=== PATIENT | male | born 1985 | race Two or more races ===

== ENCOUNTER 2016-10-29 06:37 | Emergency (ER) | payer BC ==
--- NOTE | 2016-10-29 07:37 | ER Document Report ---
HPI - HPI Patient complains to provider of: Fourth and fifth toe Onset: Yesterday Onset/Duration: Sudden Pain Level: 5 Context: 30-year-old male stubbed his fourth and fifth right toe on a door. They are swollen and bruised. Associated Symptoms: None Exacerbated by: Movement, Walking Relieved by: Denies Similar symptoms previously: No Recently seen / treated by doctor: No - ROS ROS below otherwise negative: Yes Systems Reviewed and Negative: Yes All other systems reviewed and negative - REPRODUCTIVE Reproductive: DENIES: : Past Medical History - General Information source: Patient - Social History Smoking Status: Unknown if Ever Smoked Frequency of alcohol use: None Drug Abuse: None Lives with: Family Family History: Reviewed & Not Pertinent - Past Medical History Cardiac Medical History: Reports: Hx Hypertension Endocrine Medical History: Reports: Hx Diabetes Mellitus Type 1, Hx Diabetes Mellitus Type 2 Renal/ Medical History: Denies: Hx Peritoneal Dialysis Skin Medical History: Reports Hx MRSA Past Surgical History: Reports: Hx Orthopedic Surgery - R shoulder - Immunizations Immunizations up to date: Yes Hx Diphtheria, Pertussis, Tetanus Vaccination: Yes Vertical Provider Document - CONSTITUTIONAL Agree With Documented VS: Yes Exam Limitations: No Limitations - INFECTION CONTROL TRAVEL OUTSIDE OF THE [place] IN LAST 30 DAYS: No COUNTRY TRAVELED TO/FROM: [place] - HEENT HEENT: Normocephalic - NECK Neck: Supple - RESPIRATORY O2 Sat by Pulse Oximetry: 97 - MUSCULOSKELETAL/EXTREMETIES Musculoskeletal/Extremeties: Edema, Eccymosis - Fourth and fifth toe including MTP joints 4th and 5th toes - NEURO Level of Consciousness: Awake, Alert Motor/Sensory: No Motor Deficit, No Sensory Deficit - DERM Integumentary: Warm, Dry Course - Re-evaluation Re-evalutation: 10/29/16 09:11 Distal proximal phalanx of the fourth toe and proximal proximal fifth toe phalanx - Vital Signs Vital signs: Temp Pulse Resp BP Pulse Ox 97.5 F 88 17 142/87 H 97 10/29/16 06:42 10/29/16 06:42 10/29/16 06:42 10/29/16 06:42 10/29/16 06:42 Discharge - Discharge Clinical Impression: Fourth and fifth toe fractures Condition: Good Disposition: HOME, SELF-CARE Instructions: Fractured Toe ([facility]), Nereida Taping (toes) ([facility]), Post-Op Shoe ([facility] ) Additional Instructions: see ortho for follwo up keep the toes nereida taped post op shoe to er any concerns Please complete the patient satisfaction survey if you get one, and return it.. If you do not receive a survey, then you can go to the [facility] website, [email or web address] and place your comments about your very good care. Thank you very much. It was a pleasure being your medical provider today. Prescriptions: Ibuprofen [Motrin 800 mg Tablet] 800 mg PO Q8HP PRN #30 tablet PRN Reason: Referrals: NATE LOMAS MD [ACTIVE STAFF] - Follow up as needed
[2016-10-29] MEDS ORDERED: IBUPROFEN 800 MG TABLET PO ONE (07:59)
--- NOTE | 2016-10-29 09:49 | RADIOLOGY REPORT (SQ) ---
EXAM DESCRIPTION: TOE RIGHT COMPLETED DATE/TIME: 10/29/2016 8:53 am REASON FOR STUDY: stubbed th, 5th toes COMPARISON: None. NUMBER OF VIEWS: Three views. TECHNIQUE: AP, lateral, and oblique images acquired of the right fourth toe. LIMITATIONS: None. FINDINGS: MINERALIZATION: Normal. BONES: Acute fracture right 4th toe proximal phalanx along the distal metaphysis extending into the P IP joint. This nondisplaced and nonangulated and best shown on the oblique marked with upper sioux. JOINTS: No effusions. SOFT TISSUES: No soft tissue swelling. No foreign body. OTHER: No other significant finding. IMPRESSION: Acute nondisplaced fracture right 4th toe proximal phalanx extending into the PIP joint COMMENT: SITE OF TRAUMA/COMPLAINT MARKED/STAMP COMPLETED: Yes TECHNICAL DOCUMENTATION: JOB ID: [id number] [employer]- All Rights Reserved
[2016-10-29 10:10] VITALS: BP 146/71
== END 2016-10-29 10:09 | disposition home or self-care (01) ==
LOC: ER 06:37
DX: S92.501A Displaced unspecified fracture of right lesser toe(s), initial encounter for closed fracture (principal); M79.674 Pain in right toe(s); M79.89 Other specified soft tissue disorders; W22.8XXA Striking against or struck by other objects, initial encounter
CPT/HCPCS: 99283

== ENCOUNTER 2016-12-20 08:21 | Emergency (ER) | payer BC ==
[2016-12-20 08:29] VITALS: BP 156/91
--- NOTE | 2016-12-20 09:21 | ER Document Report ---
HPI - HPI Patient complains to provider of: STD Onset: Other - 3 weeks Onset/Duration: Persistent Quality of pain: Burning Pain Level: 2 Context: Patient states that his recently cheated on him and was diagnosed with herpes. Patient complains of a painful skin lesion to the underside of his penis and is concerned about herpes. Associated Symptoms: Other - skin lesion Exacerbated by: Denies Relieved by: Denies Similar symptoms previously: No Recently seen / treated by doctor: No - ROS ROS below otherwise negative: Yes Systems Reviewed and Negative: Yes All other systems reviewed and negative - CONSTITUTIONAL Constitutional: DENIES: Fever, Chills - GASTROINTESTINAL Gastrointestinal: DENIES: Abdominal Pain - URINARY Urinary: DENIES: Dysuria, Urgency, Frequency - REPRODUCTIVE Reproductive: DENIES: : - DERM Skin Color: Normal Notes: skin lesion Past Medical History - General Information source: Patient - Social History Smoking Status: Never Smoker Frequency of alcohol use: None Drug Abuse: None 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 Lives with: Spouse/Significant other Family History: Reviewed & Not Pertinent Patient has suicidal ideation: No Patient has homicidal ideation: No - Past Medical History Cardiac Medical History: Reports: Hx Hypertension Endocrine Medical History: Reports: Hx Diabetes Mellitus Type 1, Hx Diabetes Mellitus Type 2 Renal/ Medical History: Denies: Hx Peritoneal Dialysis Skin Medical History: Reports Hx MRSA Past Surgical History: Reports: Hx Orthopedic Surgery - R shoulder - Immunizations Immunizations up to date: Yes Hx Diphtheria, Pertussis, Tetanus Vaccination: Yes Vertical Provider Document - CONSTITUTIONAL Agree With Documented VS: Yes Exam Limitations: No Limitations General Appearance: WD/WN, No Apparent Distress - INFECTION CONTROL TRAVEL OUTSIDE OF THE [place] IN LAST 30 DAYS: No - HEENT HEENT: Atraumatic, Normocephalic - NECK Neck: Normal Inspection - RESPIRATORY Respiratory: Breath Sounds Normal, No Respiratory Distress O2 Sat by Pulse Oximetry: 99 - CARDIOVASCULAR Cardiovascular: Regular Rate, Regular Rhythm, No Murmur - GI/ABDOMEN Gastrointestinal: Abdomen Soft, Abdomen Non-Tender - REPRODUCTIVE Male Genitalia: Abnormal Inspection - Skin lesion to the underside of penis concerning for condyloma acuminata. Patient with small bleeding ulceration adjacent to this skin lesion. RN to bedside as standby - MUSCULOSKELETAL/EXTREMETIES Musculoskeletal/Extremeties: CHASTITY BARRETT - NEURO Level of Consciousness: Awake, Alert, Appropriate - DERM Integumentary: Warm, Dry, Rash - skin lesion concerning for acuminata with adjacent bleeding shallow lesion Course - Re-evaluation Re-evalutation: 12/20/16 09:17 The patient has been informed that they may have pre-hypertension or hypertension based on a blood pressure reading in the emergency department. I recommend that patient call the primary care provider listed on their discharge instructions or a physician of their choice by this week to arrange follow-up for further evaluation of possible pre-hypertension or hypertension. 12/20/16 09:18 Patient declines any gonorrhea or chlamydia testing or treatment. Patient states that he knows he has herpes because his was treated for herpes that he wants to be treated for this. Patient advised that his symptoms are more consistent with genital warts but since he has a known exposure he will be given a course of antiviral medication given the fact that he does have an open skin lesion adjacent to the wartlike lesion - Vital Signs Vital signs: Temp Pulse Resp BP Pulse Ox 97.7 F 92 20 156/91 H 99 12/20/16 08:27 12/20/16 08:27 12/20/16 08:27 12/20/16 08:27 12/20/16 08:27 Discharge - Discharge Clinical Impression: Herpes exposure, Condyloma acuminatum in male, Elevated blood pressure reading Condition: Stable Disposition: HOME, SELF-CARE Instructions: Genital Warts ([facility]), Genital Herpes ([facility]) Additional Instructions: Return immediately for any new or worsening symptoms Followup with your primary care provider, call tomorrow to make a followup appointment Follow-up with the health department for treatment of your genital warts. Do not have sexual intercourse until all lesions have resolved. Safe sex practices , use a condom. The health department can perform HIV testing if you so desire. Prescriptions: Acyclovir [Zovirax 200 mg Capsule] 200 mg PO Q4H #50 capsule Forms: Return to Work [facility] - Follow up tomorrow
== END 2016-12-20 09:37 | disposition home or self-care (01) ==
LOC: ER 08:21
DX: A63.0 Anogenital (venereal) warts (principal); N48.5 Ulcer of penis; Z20.2 Contact with and (suspected) exposure to infections with a predominantly sexual mode of transmission; I10 Essential (primary) hypertension; E11.9 Type 2 diabetes mellitus without complications; Z86.14 Personal history of Methicillin resistant Staphylococcus aureus infection
CPT/HCPCS: 87250; 99283

== ENCOUNTER 2017-06-03 11:32 | Emergency (ER) | payer SELFPAY ==
[2017-06-03 11:43] VITALS: BP 128/86
--- NOTE | 2017-06-03 12:14 | ER Document Report ---
HPI - HPI Pain Level: 3 Notes: Patient is a 31-year-old male who presents the ED complaining of possible genital warts to his penis over the last 2 months. Patient states that he had an evaluation done 1 month ago and was told that it was HPV, but did not go for treatment. Patient states that the lesions continue and would like to go somewhere for treatment. Patient states that he is still able to urinate without any difficulties. Is having normal bowel movements. He denies any drug allergies. Patient has no other concerns or complaints at this time. He denies any other significant past medical history or IV drug use. Denies any headache, fever, URI, sore throat, chest pain, palpitations, syncope, cough, shortness of breath, wheeze, dyspnea, abdominal pain, nausea/vomiting/diarrhea, urinary retention, dysuria, hematuria. - ROS Notes: REVIEW OF SYSTEMS: CONSTITUTIONAL : Denies fever, chills, or sweats. Denies recent illness. EENT: Denies eye, ear, throat, or mouth pain or symptoms. Denies nasal or sinus congestion or discharge. Denies throat, tongue, or mouth swelling or difficulty swallowing. CARDIOVASCULAR: Denies chest pain. Denies palpitations or racing or irregular heart beat. Denies ankle edema. RESPIRATORY: Denies cough, cold, or chest congestion. Denies shortness of breath, difficulty breathing, or wheezing. GASTROINTESTINAL: Denies abdominal pain or distention. Denies nausea, vomiting , or diarrhea. Denies blood in vomitus, stools, or per rectum. Denies black, tarry stools. Denies constipation. GENITOURINARY: see hpi. MUSCULOSKELETAL: Denies back or neck pain or stiffness. Denies joint pain or swelling. SKIN: see hpi NEUROLOGICAL: Denies confusion or altered mental status. Denies passing out or loss of consciousness. Denies dizziness or lightheadedness. Denies headache. Denies weakness or paralysis or loss of use of either side. Denies problems with gait or speech. Denies sensory loss, numbness, or tingling. Denies seizures. ALL OTHER SYSTEMS REVIEWED AND NEGATIVE. Dictation was performed using [employer] voice recognition software - CONSTITUTIONAL Constitutional: DENIES: Fever, Chills - EENT EENT: DENIES: Sore Throat, Ear Pain, Eye problems - NEURO Neurology: DENIES: Headache, Weakness, Vision blurred, Dizzinesss / Vertigo - CARDIOVASCULAR Cardiovascular: DENIES: Chest pain - RESPIRATORY Respiratory: DENIES: Trouble Breathing, Coughing - GASTROINTESTINAL Gastrointestinal: DENIES: Abdominal Pain, Black / Bloody Stools - URINARY Urinary: DENIES: Dysuria, Urgency, Frequency - REPRODUCTIVE Reproductive: DENIES: : - MUSCULOSKELETAL Musculoskeletal: DENIES: Extremity pain Past Medical History - Social History Smoking Status: Unknown if Ever Smoked Family History: Reviewed & Not Pertinent Patient has suicidal ideation: No Patient has homicidal ideation: No - Past Medical History Cardiac Medical History: Reports: Hx Hypertension Endocrine Medical History: Reports: Hx Diabetes Mellitus Type 1, Hx Diabetes Mellitus Type 2 Renal/ Medical History: Denies: Hx Peritoneal Dialysis Skin Medical History: Reports Hx MRSA Past Surgical History: Reports: Hx Orthopedic Surgery - R shoulder - Immunizations Immunizations up to date: Yes Hx Diphtheria, Pertussis, Tetanus Vaccination: Yes Vertical Provider Document - CONSTITUTIONAL Agree With Documented VS: Yes Notes: PHYSICAL EXAMINATION: GENERAL: Well-appearing, well-nourished and in no acute distress. A&Ox4. HEAD: Atraumatic, normocephalic. EYES: Pupils equal round and reactive to light, extraocular movements intact, sclera anicteric, conjunctiva are normal. ENT: Nares patent and without discharge. oropharynx clear without exudates. No tonsilar hypertrophy or erythema. Moist mucous membranes. NECK: Normal range of motion, supple without lymphadenopathy LUNGS: Breath sounds clear to auscultation bilaterally and equal. No wheezes rales or rhonchi. HEART: Regular rate and rhythm without murmurs, rubs, gallops. ABDOMEN: Soft, nontender, nondistended abdomen. No guarding, no rebound. No masses appreciated. Normal bowel sounds present. No CVA tenderness bilaterally. : no urethral discharge. Non-tender to palp of the penis, testicles, scrotum. No erythema, abscess, or induration. No obvious hernia or lymphadenopathy. PSYCH: Normal mood, normal affect. SKIN: genital warts to the inferior head of penis - INFECTION CONTROL TRAVEL OUTSIDE OF THE [place] IN LAST 30 DAYS: No COUNTRY TRAVELED TO/FROM: [place] - RESPIRATORY O2 Sat by Pulse Oximetry: 98 Course - Re-evaluation Re-evalutation: 06/03/17 12:12 Patient is an afebrile, well-hydrated, 31-year-old male presents the ED with genital warts. Vitals are stable. PE is otherwise unremarkable. There is no urethral compromise at this time. No other labs or imaging warranted at this time based on H&P. Low suspicion/risk for acute appendicitis, bowel obstruction , acute cholecystitis, perforated diverticulitis, incarcerated hernia, pancreatitis, perforated ulcer, peritonitis, sepsis, testicular torsion, or other systemic emergent condition at this time. Patient is aware that his condition can change from initial presentation and he needs to monitor symptoms closely and seek medical attention if any acute changes. Conservative measures otherwise for symptoms. Recheck with PCM in 3-5 days. Call and schedule appointment with urologist for further evaluation and management. Return to the ED with any worsening/concerning symptoms otherwise as reviewed in discharge. Patient is in agreement. - Vital Signs Vital signs: Temp Pulse Resp BP Pulse Ox 98.1 F 106 H 16 128/86 H 98 06/03/17 11:38 06/03/17 11:38 06/03/17 11:38 06/03/17 11:38 06/03/17 11:38 Discharge - Discharge Clinical Impression: Genital warts Condition: Stable Disposition: HOME, SELF-CARE Instructions: Genital Warts ([facility]) Additional Instructions: Maintain fluids Proper hygenic technique Keep the skin clean Safe sexual practices with condoms everytime Tylenol/ibuprofen as needed Check in with the health department this week for further testing* Return immediately if symptoms worsen F/u with your PCM in 3-5 days for a recheck Call and schedule appointment with the urologist for further evaluation and management Return to the ED with any development of MOSHER/fever, trouble with vision, eye redness, worsening pain, urethral discharge, urinary retention, blood in the urine, flank pain, abdominal pain, n/v, Chest Pain, shortness of breath, joint pains, trouble breathing, or any other worsening/concerning symptoms as needed otherwise. Forms: Elevated Blood Pressure Referrals: [facility] [Provider Group] - Follow up in 3-5 days
== END 2017-06-03 12:19 | disposition home or self-care (01) ==
LOC: ER 11:32
DX: A63.0 Anogenital (venereal) warts (principal); E11.9 Type 2 diabetes mellitus without complications; I10 Essential (primary) hypertension; Z86.14 Personal history of Methicillin resistant Staphylococcus aureus infection
CPT/HCPCS: 99282